=== PATIENT | female | born 1980 | race African-American/Black ===

== ENCOUNTER 2017-05-04 09:29 | Emergency (ER) | payer MEDICAID ==
[~2017-05-04] VITALS: Ht 172.7 cm; Wt 75.0 kg
[2017-05-04 11:02] LABS: CLARITY URINE CLEAR (CLEAR); COLOR URINE YELLOW (YELLOW); KETONES URINE 4+ (NEGATIVE); LEUKOCYTE ESTERASE URINE NEGATIVE (NEGATIVE); NITRITE URINE NEGATIVE (NEGATIVE); OCCULT BLOOD URINE 1+ (NEGATIVE); PH URINE 5.5 (4.5-8.0); PROTEIN URINE TRACE (NEGATIVE); SPECIFIC GRAVITY URINE 1.028 (1.005-1.030)
[2017-05-04] MEDS ORDERED: FAMOTIDINE 20MG/2ML VIAL IV ONE (11:15)
[2017-05-04] MEDS ORDERED: KETOROLAC 30MG/ML VIAL IV ONE (11:15)
[2017-05-04] MEDS ORDERED: SODIUM CHLORIDE 0.9% 1,000 ML IV ONE (11:15)
[2017-05-04 11:37] LABS: BASOPHILS % 1.2 % (0.0-2.0); EOSINOPHILS % 0.2 % (0.0-5.0); HEMATOCRIT. 38.1 % (36.0-48.0); HEMOGLOBIN. 12.6 g/dL (12.0-16.0); LYMPHOCYTES % 17.6 % (20.0-50.0); MEAN CORPUSCULAR HEMOGLOBIN 29.4 pg (28.0-32.0); MEAN PLATELET VOLUME 7.9 fl (7.4-10.4); MONOCYTES % 8.2 % (2.0-8.0); NEUTROPHILS % 72.8 % (40.0-76.0); PLATELET 484 x1000/uL (130-400); RED BLOOD CELL COUNT 4.28 mill/uL (4.2-5.4); RED CELL DISTRIBUTION WIDTH 14.9 % (11.6-14.6)
[2017-05-04 11:56] LABS: CHLORIDE 103 mEq/L (98-107)
[2017-05-04] MEDS ORDERED: MORPHINE SULFATE 4 MG/ML CPJ (NOT FOR IM USE) IV ONE (12:00)
[2017-05-04] MEDS ORDERED: ONDANSETRON HCL 4MG/2ML VIAL IV ONE (12:00)
[2017-05-04] MEDS ORDERED: IOHEXOL-300 100 ML BOTTLE ONE (14:26)
[2017-05-04 16:11] VITALS: BP 142/91
== END 2017-05-04 16:13 | disposition home or self-care (01) ==
LOC: ER 10:29
DX: R10.13 Epigastric pain (principal)
CPT/HCPCS: 36415; 74177; 80053; 81001; 81025; 83690; 85025; 96361; 96374; 96375; 99285; J1885; J2270; J2405; J3490; J7030; Q9967; Z7610

== ENCOUNTER 2018-12-02 20:04 | Emergency (ER) | payer MEDICAID ==
[~2018-12-02] VITALS: Ht 170.2 cm; Wt 81.0 kg
[2018-12-02] MEDS ORDERED: SODIUM CHLORIDE 0.9% 1,000 ML IV ONE (23:16)
[2018-12-02] MEDS ORDERED: ONDANSETRON HCL 4MG/2ML INJ IV STA (23:16)
[2018-12-02] MEDS ORDERED: KETOROLAC 30MG/ML VIAL IV STA (23:16)
[2018-12-02 23:48] LABS: BASOPHILS % 0.1 % (0.0-2.0); EOSINOPHILS % 0.6 % (0.0-5.0); HEMATOCRIT. 39.1 % (36.0-48.0); HEMOGLOBIN. 13.2 g/dL (12.0-16.0); LYMPHOCYTES % 14.4 % (20.0-50.0); MEAN CORPUSCULAR HEMOGLOBIN 29.4 pg (28.0-32.0); MEAN CORPUSCULAR VOLUME 87.2 fL (81.0-99.0); MEAN PLATELET VOLUME 8.7 fl (7.4-10.4); MONOCYTES % 7.6 % (2.0-8.0); NEUTROPHILS % 77.3 % (40.0-76.0); PLATELET 493 x1000/uL (130-400); RED BLOOD CELL COUNT 4.49 mill/uL (4.2-5.4); RED CELL DISTRIBUTION WIDTH 14.3 % (11.6-14.6)
[2018-12-02 23:57] LABS: CHLORIDE 103 mEq/L (98-107)
[2018-12-03] MEDS ORDERED: ONDANSETRON HCL 4MG/2ML INJ IV ONE ×2 (00:15→07:45)
[2018-12-03] MEDS ORDERED: MORPHINE SULFATE 4 MG/ML CPJ (NOT FOR IM USE) IV ONE (00:15)
[2018-12-03 02:34] LABS: CLARITY URINE CLOUDY (CLEAR); COLOR URINE YELLOW (YELLOW); KETONES URINE TRACE (NEGATIVE); LEUKOCYTE ESTERASE URINE 3+ (NEGATIVE); NITRITE URINE NEGATIVE (NEGATIVE); OCCULT BLOOD URINE 1+ (NEGATIVE); PROTEIN URINE NEGATIVE (NEGATIVE); SPECIFIC GRAVITY URINE 1.007 (1.005-1.030); UROBILINOGEN URINE 0.2 E.U./dL (0.2-1.0)
[2018-12-03] MEDS ORDERED: DIPHENHYDRAMINE 50MG/ML VIAL IV ONE (03:30)
[2018-12-03] MEDS ORDERED: PROCHLORPERAZINE MALEATE 10MG TABLET PO ONE (03:30)
[2018-12-03] MEDS ORDERED: METRONIDAZOLE 500 MG PREMIX 100 ML IV NR (04:45)
[2018-12-03] MEDS ORDERED: CEFTRIAXONE 1 G PREMIX 50 ML IV NR (04:45)
[2018-12-03 07:23] LABS: ETHANOL BLOOD < 10 mg/dL
[2018-12-03 11:03] LABS: *AMPHETAMINES SCREEN URINE NEGATIVE (NEGATIVE); *BARBITURATES SCREEN URINE NEGATIVE (NEGATIVE); CANNABINOID URINE SCREEN NEGATIVE (NEGATIVE); PHENCYCLIDINE URINE SCREEN NEGATIVE (NEGATIVE)
[2018-12-03 11:04] LABS: *BENZODIAZEPINES SCREEN URINE PRESUMTIVE POSITIVE (NEGATIVE); *COCAINE SCREEN URINE PRESUMTIVE POSITIVE (NEGATIVE); METHADONE URINE SCREEN NEGATIVE (NEGATIVE); OPIATES URINE SCREEN PRESUMTIVE POSITIVE (NEGATIVE)
[2018-12-05 14:15] VITALS: BP 140/91
== END 2018-12-05 14:20 | disposition home or self-care (01) ==
LOC: ER 21:52
DX: K52.9 Noninfective gastroenteritis and colitis, unspecified (principal); I10 Essential (primary) hypertension; R11.2 Nausea with vomiting, unspecified; R10.9 Unspecified abdominal pain; Z88.5 Allergy status to narcotic agent
CPT/HCPCS: 36415; 74176; 80053; 81025; 83605; 83690; 85025; 96361; 96365; 96367; 96375; 96376; 99284; J1885; J2405; J7030; Z7610

== ENCOUNTER 2018-12-28 17:40 | Emergency (ER) | payer MEDICAID ==
[~2018-12-28] VITALS: Ht 160 cm; Wt 104.0 kg
[2018-12-28] MEDS ORDERED: KETOROLAC 60MG/2ML VIAL IM ONE (18:30)
[2018-12-28 19:26] VITALS: BP 110/70
== END 2018-12-28 20:30 | disposition home or self-care (01) ==
LOC: ER 17:40
DX: S80.12XA Contusion of left lower leg, initial encounter (principal); F17.200 Nicotine dependence, unspecified, uncomplicated; Z88.8 Allergy status to other drugs, medicaments and biological substances; Z91.018 Allergy to other foods; W20.8XXA Other cause of strike by thrown, projected or falling object, initial encounter; Y93.89 Activity, other specified; Y92.89 Other specified places as the place of occurrence of the external cause; Y99.8 Other external cause status
CPT/HCPCS: 73590; 81025; 96372; 99283; J1885

== ENCOUNTER 2022-01-30 08:18 | Emergency (ER) | payer MEDICAID, OTHER ==
[~2022-01-30] VITALS: Ht 160 cm; Wt 86.0 kg
[2022-01-30] MEDS ORDERED: KETOROLAC 60MG/2ML VIAL IM ONE (09:15)
[2022-01-30] MEDS ORDERED: TETANUS, DIPHTHERIA, PERTUSSIS VAC/PF 0.5ML (>10YR OLD) IM ONE (09:15)
[2022-01-30] MEDS ORDERED: IBUP-2029 MT (10:15)
[2022-01-30] MEDS ORDERED: CYCL10TA21 MT (10:15)
[2022-01-30 10:40] VITALS: BP 166/104
== END 2022-01-30 10:47 | disposition home or self-care (01) ==
LOC: ER 08:18
DX: S00.83XA Contusion of other part of head, initial encounter (principal); S50.12XA Contusion of left forearm, initial encounter; S01.511A Laceration without foreign body of lip, initial encounter; F41.9 Anxiety disorder, unspecified; Z88.5 Allergy status to narcotic agent; Z91.018 Allergy to other foods; Y04.0XXA Assault by unarmed brawl or fight, initial encounter; Y93.89 Activity, other specified; Y92.89 Other specified places as the place of occurrence of the external cause
CPT/HCPCS: 70450; 73090; 81025; 90471; 90715; 96372; 99284; J1885